=== PATIENT | female | born 1985 | race Caucasian/White ===

== ENCOUNTER 2024-05-29 10:00 | Outpatient (AMB) | payer MEDICARE, MEDICAID, SELFPAY ==
--- NOTE | 2024-05-29 10:12 | A.OFFVIS_ITS ---
Vital Signs 3 05/29/24 10:13 Height 5 ft 6 in Weight 153 lb 3.54 oz BMI 24.7 BP 100/60 Blood Pressure Location Lt brachial Position Sitting Pulse 87 Pulse Source Pulse Oximeter Intake Visit Reasons: Low TSH-conf Intake Note: Patient present today for low TSH. 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 Accompanied by: Self / Same As Patient Allergies amoxicillin [From AUGMENTIN] Allergy (Unknown, Unverified 05/29/24 10:16) VOMITING aripiprazole [From ABILIFY] Allergy (Unknown, Unverified 05/29/24 10:16) DYSTORIA bee pollen [BEE STINGS] Allergy (Unknown, Unverified 05/29/24 10:16) SWELLING clavulanic acid [From AUGMENTIN] Allergy (Unknown, Unverified 05/29/24 10:16) VOMITING lamotrigine [From LAMICTAL] Allergy (Unknown, Unverified 05/29/24 10:16) FULL BODY BRUISE quetiapine [From SEROQUEL] Allergy (Unknown, Unverified 05/29/24 10:16) HIGH PROLACTIN LEVEL risperidone [From RISPERDAL] Allergy (Unknown, Unverified 05/29/24 10:16) HIGH PROLACTIN LEVEL bee sting Allergy (Unknown, Uncoded 05/29/24 10:16) Swelling,edema LaMICtal XR Allergy (Unknown, Uncoded 05/29/24 10:16) full body bruising Medication List - Last Reconciled 05/29/24 by Aliyah Kinney MD fluticasone propionate 50 mcg/actuation 1 spray intranasal DAILY HPI Comments Details: 39-year-old female coming in today for initial evaluation on excessive diaphoresis. She was sent to us to evaluate her for her thyroid function. I reviewed her ultrasound report from April 2024 which showed no nodules. Labs done most recently in March 2024, showed TSH at 0.581 and at 0.489. Both within normal limits. Free T4 also noted to be normal on 03/31/2024 at 1.07 and again on 04/19 which seem value. Total T3 at 103 both times normal. Reports excessive sweating , anxiety, always on her nerves for at least 15 years. On disability due to panic disorder with agoraphobia. Also diagnosed with major depression .Was previously on many meications , but now with therapy with better coping skills managing it without medications. Quit smoking this summer 2023 feels like that also made her feel better Uses marijuana medicinally in gummies and smokes before bed Sleep : trouble falling asleep and wakes up throughout the night. She has been usign marijuana since age 15 years. Hair is more brittle. ALso reports palpitations, chest tightness with some of these episodes. Has tremors also. Feels hot most of the time. Reports flushing associated with the episodes as well. These are bed flushes as opposed to Dr. Flushing. She also feels that sometimes she has pallor with these episodes. Gets shivers other times. Loose stools are her normal. Has seen GI 15 years ago and she was diagnosed with IBS. She is a stay at home mom. Always sweating. even during normal chores. Has to chnage her clothes even with just normal chores. Periods recently 3 times this year she got intermenstrual bleeding. But always gets them monthly otherwise. Menarche : 11 or 12 years Preganancies : 3 pregnancies , 1 miscarriage out of 3 Children are 4 and 7 years old Patient currently denies changes in appearance of eyes or vision changes. She reports she eats a lot and thats why not losing weight but otherwise she would. ? Patient denies any difficulty swallowing, pain on swallowing or voice changes or difficulty breathing. Patient denies any history of childhood neck radiation. Was trialled on lithium for 3-6 months , some 10 years ago. Denies having ever used amiodarone or biotin supplements. Patient denies any family history of thyroid cancer . Paternal aunts have thyroid disease. Review of systems Constitutional: no fevers, chills HEENT: no changes in vision Cardiac: Reports intermittent chest discomfort or palpitations. Pulmonary: No SOB GI:No abdominal pain, no nausea or vomiting, : no burning micturition, dysuria or increase in urinary frequency Neurologic: No dizziness, no weakness in extremities Physical exam General: very anxious looking HEENT: normocephalic/atraumatic, moist oral mucosa Neck: supple, symmetrical, no thyromegaly , no dorsocervical or supraclavicular fat pads Cardiac: normal heart sounds Pulm: normal breath sounds B/L, no added breath sounds Abd: not distended, no tenderness Extremities: no edema, no signs of myxedema Neuro: AAO x3, Speech: normal, no facial droop, moving all 4 extremities Skin: no rash [facility] Medical History (Updated 05/29/24 @ 10:57 by Aliyah Kinney MD) Generalized hyperhidrosis Flushing Family History Mother No problems noted. Father No problems noted. Social History (System 07/14/21 @ 13:57 by Beulah Hung) Alcohol intake: current Alcohol intake frequency: holidays/special occasions only Patient Tobacco Use Status: Former Tobacco user Assessment & Plan Assessment & Plan (1) Flushing: Code(s): R23.2 - Flushing Category: Medical Plan: Patient with hyperhidrosis, flushing, excessive anxiety coming in today for evaluation. Her thyroid function has been checked multiple time and viral her TSH from most recently March 2024 is at the lower end of normal, it is still normal. Her thyroid ultrasound also looks unremarkable. Given that she has such excessive symptoms, if she did have subclinical hyperthyroidism we would treat this I will repeat a TSH in his well as an evaluate her for a TSI and trab antibody level. She is also reporting of flushing and her main complaint is these episodes of anxiety associated with somatic symptoms of hyperhidrosis, sometimes pallor, palpitations, tremors. These are quite debilitating for her. Flushing has many differential diagnosis, including medullary thyroid cancer, carcinoid. I will check calcitonin and 5 HIAA levels. We will also evaluate her for pheochromocytoma with plasma metanephrine normetanephrine levels. I will also check her for 24 hour urine cortisol levels as some patients have excessive mood symptoms in the setting of Jose Ramon's syndrome. Though she does not have any other cushingoid features. She is not postmenopausal, her periods are regular. She is managing the anxiety somewhat with therapy. Plan: -ordered endocrine workup for these episodes with calcitonin, DHEA-S, cortisol, acth, plasma metanephrine and normetanephrine levels, 24 hour urine cortisol and 5 HIAA levels, we will repeat TSH in thyrotropin receptor antibody levels as well -follow up in 6 weeks to discuss results (2) Generalized hyperhidrosis: Code(s): R61 - Generalized hyperhidrosis Category: Medical Plan: see above Plan I spent 45 minutes in reviewing the record, seeing the patient and documenting in the medical record. Orders: Orders 2 Adrenocorticotropic Hormone Today R23.2 - Flushing DHEA Sulfate Today R23.2 - Flushing Thyroid Stimulating Hormone Today R23.2 - Flushing Free T4 (Free Thyroxine) Today R23.2 - Flushing Cortisol, Free 24Hr Urine Today R23.2 - Flushing Creatinine, 24 Hr Group Today R23.2 - Flushing Basic Metabolic Panel Today R23.2 - Flushing 5-HIAA 24 Hour Urine Today R23.2 - Flushing Metanephrines, Plasma Today R23.2 - Flushing Cortisol Random Today R23.2 - Flushing Calcitonin Today R23.2 - Flushing Thyroid Stimulating Immunoglob Today R23.2 - Flushing Thyrotropin Receptor Antibody Today R23.2 - Flushing Patient Instructions: do blood work early 8 AM , fasting Stop supplements a week before testing Go on a good relaxed day Do 24 hr urine collection 24 hr urine collection instructions You have been asked to collect your urine for 24 hours to assess for calcium excretion. You must choose a 24 hour period of time when you will be home. The morning of the first day, DISCARD the FIRST morning void and then note the time. You will collect every single void from then on for 24 hours. For example, if you wake up at 6am and urinate, flush down that void. You will then collect every drop of urine all day and all night through 6am the following day. You will urinate one last time at 6am for the collection. The jug of urine must be kept in the refrigerator until you bring it to the lab.You have been asked to collect your urine for 24 hours to assess for calcium excretion. You must choose a 24 hour period of time when you will be home. The morning of the first day, DISCARD the FIRST morning void and then note the time. You will collect every single void from then on for 24 hours. For example, if you wake up at 6am and urinate, flush down that void. You will then collect every drop of urine all day and all night through 6am the following day. You will urinate one last time at 6am for the collection. The jug of urine must be kept in the refrigerator until you bring it to the lab. We will discuss all results in person in 6 weeks Coding Level of Care Code New Pt Level 4 (60812) Diagnoses Flushing R23.2 Generalized hyperhidrosis R61 Time Spent (min) 45
[2024-05-29 10:13] VITALS: BP 100/60; PULSE 87; BMI 24.7
== END 2024-05-29 10:54 | disposition home or self-care (01) ==
LOC: HO.ENCR 10:00
PROVIDERS: PCP Nurse Practitioner; Visit Provider Student in an Organized Health Care Education/Training Program
DX: R23.2 Flushing (principal); R61 Generalized hyperhidrosis
CPT/HCPCS: 99204

== ENCOUNTER → 2024-05-29 10:00 | Outpatient (BNVA) | payer MEDICARE, MEDICAID, SELFPAY | PROVIDERS: PCP Nurse Practitioner; Visit Provider Student in an Organized Health Care Education/Training Program | DX: R23.2 Flushing (principal); R61 Generalized hyperhidrosis | CPT/HCPCS: 99202 ==

== ENCOUNTER 2024-06-30 08:15 | Outpatient (REF) | payer MEDICARE, MEDICAID, SELFPAY | END 2024-06-30 08:16 | disposition home or self-care (01) | LOC: HO.WFDLDS 08:15 | PROVIDERS: Visit Provider Student in an Organized Health Care Education/Training Program | DX: Z13.89 Encounter for screening for other disorder (principal) ==